=== PATIENT | male | born 1965 | race Caucasian/White ===

== ENCOUNTER 2023-03-01 08:23 | Observation (INO) | payer MEDICAID, SELFPAY ==
[2023-03-01] VITALS (9 sets, daily range): BP systolic 141–179; BP diastolic 74–94; PULSE 69–82; RESP 15–18; TEMP 36.6–36.8; O2SAT 98–100; BMI 23.3; BMI 22.8
--- NOTE | 2023-03-01 08:41 | RAD_ITS ---
STUDY: X-RAY CHEST REASON FOR EXAM: Male, 57 years old. Stroke symptoms TECHNIQUE: Single AP portable view of the chest. COMPARISON: None. FINDINGS: EKG electrodes are seen. Hyperinflation. Scattered calcified granulomas. No acute infiltrate is seen. There is no demonstrated pleural abnormality. Normal size heart. Normal mediastinum and evin. Normal visualized pulmonary arteries. Normal visualized aortic arch and descending thoracic aorta. There are degenerative changes of the visualized thoracic spine. Normal visualized ribs, clavicles, and shoulders. There is no demonstrated abnormality of the visualized soft tissue structures of the upper abdomen. RAD/Chest 1 View (Portable) IMPRESSION: Hyperinflation. No acute abnormality is seen. Electronically Signed: Fabio Lange MD at 9:27 EDT ,
--- NOTE | 2023-03-01 08:41 | CT_ITS ---
STUDY: CT BRAIN WITHOUT CONTRAST REASON FOR EXAM: Male, 57 years old. Left sided weakness/ataxia RADIATION DOSAGE (If Supplied By Facility): CTDIvol = ( 44.99 ) mGy, DLP = ( 812.98 ) mGycm TECHNIQUE: Transaxial CT imaging of the brain was performed without administration of intravenous contrast material. Individualized dose optimization techniques were used for this CT. COMPARISON: No relevant priors. FINDINGS: Normal soft tissue structures. Normal calvarium. Normal size ventricles and extra-axial spaces for the patient''s age. Normal white matter tracts of the cerebral hemispheres. Tiny lacunae in the right basal ganglion. Normal brainstem. Normal cerebellum. There is no intracranial hemorrhage. There are no findings of an acute ischemic infarction. Normal visualized paranasal sinuses. CT/Brain/Head without Contrast IMPRESSION: Tiny lacunae in the right basal ganglion. Electronically Signed: Fabio Lange MD at 9:26 EDT ,
[2023-03-01 09:03] LABS: Basophil# 0.08 X10^3/uL; Basophil% 0.9 % (0-1); Eosinophils% 9.2 % (0-5); Hematocrit 49.3 % (40-54); Hemoglobin 16.4 g/dL (13.0-16.5); Lymphocyte % 25.2 % (19-41); Mean Corp Hgb Conc 33.3 g/dL (32-36); Mean Corpuscular Hgb 27.8 pg (27.0-32.0); Mean Corpuscular Volume 83.6 fL (80-94); Mean Platelet Vol. 10.3 fl (6.2-12.0); Monocyte# 0.63 X10^3/uL; Monocyte% 7.2 % (0-10); NRBC Flagged by Analyzer 0 % (0-5); Neutrophil % 57.2 % (47-70); Platelet Count 348 K/mm3 (150-450); RBC Distribution Width CV 13.3 % (11.6-14.6); RBC Distribution Width SD 40.7 fl (35.1-43.9); White Blood Count 8.7 K/mm3 (4.4-11.0)
--- NOTE | 2023-03-01 09:08 | EDS_ITS ---
HPI History of Present Illness Chief Complaint: Neuro S/Sx Informant: patient and family Narrative Narrative: Patient is a 57-year-old male with history of TIAs and hypertension presenting with concern of stroke. Patient had developed some left-sided weakness and paresthesias on , February 23 (1 week ago) and had been evaluated at [facility]. They had recommended transfer to [facility] however patient thought this was just another TIA and left because he was concerned about bill associated with medical transport. Patient states he has had continued symptoms since however upon wakening this morning they are more severe. Family was at the bedside states that his gait has been off since but he was very unsteady this morning. He feels that he is a little bit weak in his left upper extremity but his left lower extremity is more weak and now he is stumbling. He also has paresthesias of his left leg. Patient notes he is been having some vision changes as been going on for months with the left eye being more blurry. No significant speech changes. They also has been more fatigued this week. No report of any head injuries. No other complaints or concerns at this time. [facility] Medical History Diabetes Former smoker Hypertension Kidney stones Sleep apnea TIA (transient ischemic attack) Home Medications amlodipine 10 mg tablet 10 mg PO DAILY BLOOD PRESSURE 03/01/23 [History Last Taken 03/01/23] aspirin 325 mg tablet 325 mg PO DAILY PAIN 03/01/23 [History Last Taken 03/01/23] cetirizine 10 mg tablet 10 mg PO DAILY PRN NASAL CONGESTION 03/01/23 [History Last Taken Unknown] empagliflozin 25 mg tablet (Jardiance) 25 mg PO DAILY BLOOD SUGARS 03/01/23 [History Last Taken Unknown] ibuprofen 800 mg tablet 800 mg PO TID PRN PAIN 03/01/23 [History Last Taken 03/01/23] insulin degludec 100 unit/mL (3 mL) subcutaneous pen (Tresiba FlexTouch U-100 insulin) 50 unit subcut DAILY DIABETES 03/01/23 [History Last Taken 03/01/23] lisinopril 20 mg tablet 40 mg PO DAILY BLOOD PRESSURE 03/01/23 [History Last Taken 03/01/23] psyllium husk 0.52 gram capsule (Fiber (psyllium husk)) 0.52 g PO DAILY CONSTIPATION 03/01/23 [History Last Taken 03/01/23] Allergy/AdvReac Type Severity Reaction Status Date / Time No Known Allergies Allergy Verified 03/01/23 11:51 Family History (Updated 03/01/23 @ 12:[address] Nando Gonzalez DO) Aunt CVA (cerebral vascular accident) Surgical History no surgical history Social History (Updated 03/01/23 @ 12:[address] Nando Gonzalez DO) Smoking Status: Former smoker alcohol intake: current alcohol intake frequency: holidays/special occasions only ROS ROS ED Constitutional Constitutional ED: Denies chills or fever(s) Eyes Eyes: Reports change in vision ENT ENT ED: Denies rhinorrhea or sore throat Cardiovascular Cardiovascular: Denies chest pain or palpitations Respiratory/Chest Respiratory/Chest: Denies cough Gastrointestinal Gastrointestinal: Denies abdominal pain, nausea or vomiting Musculoskeletal Musculoskeletal: Denies arthralgias or myalgias Integumentary Denies rash Neurologic Neurologic: Reports headache(s), paresthesias LLE and weakness Psychiatric Psychiatric: Denies anxiety EXAM Physical Exam Const Vital Signs: 03/01/23 08:24 03/01/23 11:24 Temperature 97.8 F 97.8 F Temperature Source Temporal Temporal Pulse Rate 74 69 Respiratory Rate 18 18 Blood Pressure 179/93 H 150/94 H Blood Pressure Mean 121 112 Pulse Ox 99 99 Oxygen Delivery Method Room Air Room Air Positive well nourished and well developed General Appearance ED: well developed and NAD HEENT Reports moist mucous membranes Eyes PERRL and EOMs intact bilaterally Neck supple and no JVD Chest Wall inspection of chest normal and palpation of chest normal Resp normal respiratory effort and clear to auscultation bilaterally Cardio no murmurs Rate: regular rate Rhythm: regular rhythm GI normal to inspection, nondistended, normoactive bowel sounds Back/Spine no CVA tenderness Extremity normal to inspection General Extremety ED: Negative for deformity General Extremity: Negative for deformity Neuro oriented x3 and CN's II-XII intact bilaterally Neuro Narrative: Subjective paresthesias of the left leg. Very subtle drift of the left upper and lower extremities. Patient has ataxia of the left extremities out of proportion to the weakness. See NIH below. Psych mental status grossly normal Skin no wounds NIHSS NIHSS Initial: 1a Level of Consciousness: 0 1b LOC Questions (Score 2 if aphasic/stupor): 0 1c LOC Commands (Only score 1st attempt): 0 2 Best Gaze (If aphasic, use reflexive mvmts.): 0 3 Visual: 0 4 Facial Palsy: 0 5 Motor Arm Right (UN = amputation/fusion): 0 5 Motor Arm Left: 1 6 Motor Leg Right: 0 6 Motor Leg Left: 1 7 Limb ataxia (Only + if out of proportion): 2 8 Sensory (Aphasia/stupor=0 or 1, coma=2): 0 9 Best Language: 0 10 Dysarthria (mute, coma=2, intubated=UN): 0 11 Extinction and Inattention (only scored if +): 0 Total Score: 4 MDM MDM MDM Narrative Medical decision making narrative: Patient's evaluated for progression of all left-sided deficits. He was evaluated and likely had the start of a stroke 6 days ago but at that time did not want to be transferred and decided to leave the hospital. On [facility], ER report as well as CTA of the head and neck are reviewed from outside hospital. 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 There is no significant stenosis. This is relayed to admitting physician at our hospital. It does seem that the patient's symptoms are about the same as they were last week but given the progression of symptoms and a CT that now shows lacunar infarct of the right basal ganglia patient is now agreeable with admission. He is hypertensive and hyperglycemic in the ER. He does have a history of both hypertension and diabetes. He does not have signs of hemorrhagic conversion. He is given aspirin in the emergency room. Patient is not a TNK candidate due to the timing of onset and the finding of acute stroke on his CT. stroke alert was not called. Lab Data Attestation: I reviewed the patient's lab results. Labs: Laboratory Results - last 24 hr 03/01/23 03/01/23 08:29 09:15 WBC 8.7 RBC 5.90 Hgb 16.4 Hct 49.3 MCV 83.6 MCH 27.8 MCHC 33.3 RDW Std Deviation 40.7 RDW Coeff of Tres 13.3 Plt Count 348 MPV 10.3 Immature Gran % (Auto) 0.300 Neut % (Auto) 57.2 Lymph % (Auto) 25.2 [place] % (Auto) 7.2 Eos % (Auto) 9.2 H Baso % (Auto) 0.9 Absolute Neuts (auto) 5.0 Absolute Lymphs (auto) 2.20 Nucleated RBC % 0 Sodium 133 L Potassium 3.9 Chloride 101 Carbon Dioxide 30.0 Anion Gap 2 L BUN 18 Creatinine 0.94 Estim Creat Clear Calc 84.89 Est GFR (MDRD) Af Amer 106 Est GFR (MDRD) Non-Af 88 BUN/Creatinine Ratio 19.0 Glucose 261 H Calcium 9.9 Total Bilirubin 0.40 AST 11 L ALT 32 Alkaline Phosphatase 87 Total Protein 8.3 H Albumin 4.0 Globulin 4.3 H Albumin/Globulin Ratio 0.9 Urine Color Yellow Urine Clarity Clear Urine pH 6.5 Ur Specific [place] 1.010 Urine Protein Negative Urine Glucose (UA) 250 H Urine Ketones Negative Urine Occult Blood Negative Urine Nitrite Negative Urine Bilirubin Negative Urine Urobilinogen Normal Ur Leukocyte Esterase Negative Urine RBC 0 SEEN Urine WBC 0 SEEN Ur Squamous Epith Cells 0 SEEN Urine Bacteria 0 SEEN Urine Mucus 0 SEEN Urine Opiates Screen NEGATIVE Urine Methadone Screen NEGATIVE Ur Barbiturates Screen NEGATIVE Ur Phencyclidine Scrn NEGATIVE Ur Amphetamines Screen NEGATIVE MDMA (Ecstasy) Screen NEGATIVE U Benzodiazepines Scrn NEGATIVE Urine Cocaine Screen NEGATIVE U Cannabinoids Screen NEGATIVE Ur Drug Screen Comment Ethyl Alcohol < 3.0 Radiography Chest X-Ray - ED: 1 View, Read by ED Physician, Read by Radiologist and No Acute Disease Diagnostic Testing: Clinical Impression(s) from Imaging Studies Brain CT 03/01/23 08:41 IMPRESSION: Tiny lacunae in the right basal ganglion. Electronically Signed: Fabio Lange MD at 9:26 EDT , Chest X-Ray 03/01/23 08:41 IMPRESSION: Hyperinflation. No acute abnormality is seen. Electronically Signed: Fabio Lange MD at 9:27 EDT , Discharge Plan Dx/Rx/DC Orders Clinical Impression: Basilar artery aneurysm, CVA (cerebral vascular accident) Disposition Disposition: Acute Care [facility] Discharge Date/Time: 03/01/23 11:40
[2023-03-01 09:10] LABS: Alcohol, Blood (Medical)-Serum < 3.0 mg/dL
[2023-03-01 09:14] LABS: ALB/GLOB Ratio 0.9 RATIO (0.9-2.4); AST(SGOT) 11 U/L (15-37); Alanine Aminotransfer ALT/SGPT 32 U/L (16-61); Alkaline Phosphatase 87 U/L (45-117); Anion Gap 2 (5-15); BUN 18 mg/dL (7-18); Calcium,Total 9.9 mg/dL (8.5-10.1); Chloride 101 mmol/L (98-107); Creatinine, Serum 0.94 mg/dL (0.70-1.30); EST Glomerular Filtration Rate 88 mL/min (>60); Est Glom Filt Rate - Afr Amer 106 mL/min (>60); Estimated Creatinine Clearance 84.89 ml/min; Globulin 4.3 g/dL (2.2-4.2); Glucose 261 mg/dL (74-106); Potassium 3.9 mmol/L (3.5-5.1); Protein, Total 8.3 g/dL (6.4-8.2); Sodium Level 133 mmol/L (136-145)
[2023-03-01 09:23] LABS: Bacteria 0 SEEN /hpf (None Seen); Mucous, Urine 0 SEEN /hpf (<or=2+); Red Blood Cells-Urine 0 SEEN /hpf (0-5); Squamous Epithelial Cells - UA 0 SEEN /hpf (0-5); White Blood Cells 0 SEEN /hpf (0-5)
[2023-03-01 09:24] LABS: Color, Urine Yellow (Yellow); Glucose, Dipstick 250 mg/dl (Normal); Ketone-Dipstick Negative (Negative); Leukocyte Esterase-Dipstick Negative /ul (Negative); Nitrite-Dipstick Negative (Negative); Occult Blood-Urine Negative /ul (Negative); Protein-Dipstick Negative (Negative); Urine Bilirubin Dipstick Negative (Negative); Urine Clarity Clear (Clear); Urine Urobilinogen Normal (Normal); Urine pH 6.5 (5.0 - 8.0)
[2023-03-01 09:37] LABS: Amphetamine Urine VISTA NEGATIVE (<1000 ng/mL); Barbiturate Urine VISTA NEGATIVE (< 200 ng/mL); Benzodiazepine Urine VISTA NEGATIVE (< 200 ng/mL); Cocaine Urine VISTA NEGATIVE (< 300 ng/mL); Ecstacy Urine VISTA NEGATIVE (< 500 ng/mL); Methadone Urine VISTA NEGATIVE (< 300 ng/mL); PCP Urine VISTA NEGATIVE (< 25 ng/mL); THC Urine VISTA NEGATIVE (< 50 ng/mL); Vista UDS pH Range 6
--- NOTE | 2023-03-01 12:05 | MRI_ITS ---
We are attempting to reach an attending provider to discuss findings. An addendum with communication details will be sent when the communication is complete. STUDY: MRI BRAIN WITHOUT CONTRAST REASON FOR EXAM: Male, 57 years old. CVA TECHNIQUE: Standardized multiplanar fat and water weighted pulse sequences were obtained. Sagittal T1, axial T2, FLAIR and diffusion-weighted images with ADC map. COMPARISON: CT brain March 01, 2023. FINDINGS: Normal size of the ventricles and extra-axial spaces for the patient''s age. Thin linear area of restricted diffusion in the right side of the armando extending through the area of the red nucleus. There is associated with increased T2 and FLAIR signal. Noncompliant scattered areas of increased T2 and FLAIR signal in the periventricular white matter most commonly representing chronic small vessel ischemic changes. Normal T2* images of the brain without demonstrated susceptibility artifact. There is no demonstrated hemosiderin stain. There is no extra-axial fluid accumulation. Normal flow voids within the major intracranial circulation suggesting patency by spin echo criteria. Specifically, basilar artery is normal in appearance. Normal sella turcica, pituitary gland, infundibular stalk, optic chiasm and hypothalamus. Normal tectal plate and pineal gland. Normal cerebellum. Normal basal cisterns. Normal bilateral temporal bones. Normal bilateral internal auditory canals. Normal visualized paranasal sinuses. Normal calvarium and skull base. Visualized upper cervical spine notable for posterior disc herniation at C2-3. MRI/Brain without Contrast IMPRESSION: Restricted diffusion indicating acute ischemia right armando; posterior circulation infarct. Electronically Signed: Basil Wong DO at 21:02 EDT ,
--- NOTE | 2023-03-01 12:05 | ECHOCS_ITS ---
Reason For Study: TIA/CVA Procedure This was a 2D Doppler, Color Flow transthoracic echocardiogram. The study was technically difficult. Exam performed portable in patient room. Left Ventricle Normal LV size. The estimated ejection fraction is 70 %. Unable to assess diastolic dysfunction. No regional wall motion abnormalities noted. Right Ventricle Normal RV size. Normal systolic function. Atria Normal left atrium. Normal right atrium. No doppler evidence for ASD. Bubble contrast study negative for right to left interatrial shunt. Mitral Valve There is moderate mitral annular calcification. There is no mitral valve stenosis. No mitral valve insufficiency. Tricuspid Valve There is no tricuspid stenosis. Trivial tricuspid valve insufficiency. Pulmonary artery systolic pressure is 25 mmHg. Aortic Valve Trisinus/trileaflet aortic valve. Moderate diffuse aortic valve thickening. Mild aortic stenosis. No aortic valve insufficiency. Pulmonic Valve There is no pulmonic valvular stenosis. No pulmonic valve insufficiency. Great Vessels Normal aortic root. Pericardium/Pleural No pericardial effusion. Medication Performed a rapid injection of agitated mix of 9 cc saline and 1cc air to assess for atrial septal defect. Diluted definity 1.5ml given slow IV push to enhance endocardial definition. MMode/2D Measurements & Calculations LVIDd: 3.7 cm IVSd: 1.2 cm LVOT diam: 2.0 cm LVIDs: 2.2 cm LVPWd: 1.2 cm RVDd: 3.3 cm FS: 40.7 % LVOT area: 3.3 cm2 Ao root diam: 3.1 cm LAV(MOD-bp): 31.7 ml LVAd ap4: 29.1 cm2 LAV(MOD-bp) Indexed: 17.5 ml/m2 LVLd ap4: 7.9 cm LAV(MOD-sp2): 24.6 ml EDV(MOD-sp4): 89.1 ml LAV(MOD-sp4): 38.6 ml EDV(sp4-el): 90.8 ml LVAs ap4: 12.4 cm2 LVLs ap4: 6.1 cm ESV(MOD-sp4): 20.6 ml ESV(sp4-el): 21.6 ml EF(MOD-sp4): 76.8 % EF(sp4-el): 76.2 % LVAd ap2: 24.9 cm2 SV(MOD-sp4): 68.5 ml SV(MOD-sp2): 49.1 ml LVLd ap2: 7.6 cm EDV(MOD-sp2): 66.9 ml EDV(sp2-el): 68.8 ml LVAs ap2: 11.9 cm2 LVLs ap2: 6.6 cm ESV(MOD-sp2): 17.8 ml ESV(sp2-el): 18.0 ml EF(MOD-sp2): 73.4 % SV(sp4-el): 69.2 ml LA dimension(2D): 3.8 cm LA A4 area: 15.0 cm2 RA A4 area: 14.9 cm2 TAPSE: 2.0 cm Time Measurements MV dec time: 0.32 sec Doppler Measurements & Calculations MV E max omar: 65.2 cm/sec Lat Peak E' Omar: 6.7 cm/sec Med Peak E' Omar: 6.2 cm/sec MV A max omar: 81.5 cm/sec E/E' lat: 9.7 E/E' med: 10.6 MV E/A: 0.80 Ao V2 max: 158.4 cm/sec LV V1 max: 124.1 cm/sec MV dec slope: 205.5 cm/sec2 Ao max P.0 mmHg LV V1 max P.2 mmHg ELVIE(V,D): 2.6 cm2 PA V2 max: 112.8 cm/sec TR max omar: 254.8 cm/sec TR max P.0 mmHg ECHO/Echo Complete W/ Contrast Interpretation Summary The estimated ejection fraction is 70 %. Unable to assess diastolic dysfunction. Mild aortic stenosis. Ordering Physician: Nando Gonzalez Performed By: Aurelia Appiah RDCS
--- NOTE | 2023-03-01 12:12 | PCM.HP.STD ---
HPI - General General Date of Admission: 03/01/23 Date of Service: 03/01/23 Chief Complaint: left sided weakness. HPI Narrative WENDY SARAH, is a 57 M who presents with left sided weakness and slurred speech. . Symptoms began last week on the . He was seen at an outside ED he was worked up for a stroke. Plan was transfer to [facility], however, the patient had concerns about the cost of transfer and went home instead. His symptoms at improved. However, last night his left sided weakness got worse leading him to present to the [facility] ED today. CT here showed a tiny lacune in the right BG. [facility] Medical History Diabetes Former smoker Hypertension Kidney stones Sleep apnea TIA (transient ischemic attack) Home Medications amlodipine 10 mg tablet 10 mg PO DAILY BLOOD PRESSURE 03/01/23 [History Last Taken 03/01/23] aspirin 325 mg tablet 325 mg PO DAILY PAIN 03/01/23 [History Last Taken 03/01/23] cetirizine 10 mg tablet 10 mg PO DAILY PRN NASAL CONGESTION 03/01/23 [History Last Taken Unknown] empagliflozin 25 mg tablet (Jardiance) 25 mg PO DAILY BLOOD SUGARS 03/01/23 [History Last Taken Unknown] ibuprofen 800 mg tablet 800 mg PO TID PRN PAIN 03/01/23 [History Last Taken 03/01/23] insulin degludec 100 unit/mL (3 mL) subcutaneous pen (Tresiba FlexTouch U-100 insulin) 50 unit subcut DAILY DIABETES 03/01/23 [History Last Taken 03/01/23] lisinopril 20 mg tablet 40 mg PO DAILY BLOOD PRESSURE 03/01/23 [History Last Taken 03/01/23] psyllium husk 0.52 gram capsule (Fiber (psyllium husk)) 0.52 g PO DAILY CONSTIPATION 03/01/23 [History Last Taken 03/01/23] Allergy/AdvReac Type Severity Reaction Status Date / Time No Known Allergies Allergy Verified 03/01/23 11:51 Family History (Updated 03/01/23 @ 12:[address] Nando Gonzalez DO) Aunt CVA (cerebral vascular accident) Surgical History no surgical history Social History (Updated 03/01/23 @ 12:[address] Nando Jopperi, DO) Smoking Status: Former smoker alcohol intake: current alcohol intake frequency: holidays/special occasions only ROS ROS Narrative States that he has chronic light sensitivity. His vision recently has improved. Otherwise all review of systems are negative except as mentioned above in HPI and ROS. Vital Signs Vital Signs Vital Signs: 03/01/23 08:24 03/01/23 11:24 Temperature 36.6 C 36.6 C Temperature Source Temporal Temporal Pulse Rate 74 69 Respiratory Rate 18 18 Blood Pressure 179/93 H 150/94 H Blood Pressure Mean 121 112 Pulse Ox 99 99 Oxygen Delivery Method Room Air Room Air Weight Weight: 68.2 kg Body Mass Index (BMI) 22.8 Physical Exam Const alert and no apparent distress HEENT normocephalic and head/scalp atraumatic Eyes PERRL and EOMs intact bilaterally Eyes Narrative: bilateral nystagmus. Resp normal respiratory effort, no retractions, no use of accessory muscles and clear to auscultation bilaterally Cardio regular rate, regular rhythm, S1 normal heart sound and S2 normal heart sound GI normal to inspection, nondistended, normoactive bowel sounds, soft to palpation, non-tender and non-distended Extremity normal to inspection and full ROM Neuro oriented x3, CN's II-XII intact bilaterally, moves all extremities and no focal motor deficits Neuro Narrative: abnormal finger to nose and heel to saleh on left. Sensorium / Orientation: awake and alert Motor Exam: strength 5/5 throughout Psych affect normal Results Medical Records Data Attestation: I reviewed the patient's medical records Medical records narrative: Through [facility]: CT brain on 02/23: negative CTA brain and neckon 02/24: basilar tip aneurysm of 4mm, proximal basilar artery 3.1mm. Lab / Micro Data Attestation: I reviewed the patient's lab results. 03/01/23 08:29 03/01/23 08:29 Labs: Laboratory Results - last 24 hr 03/01/23 08:29: WBC 8.7, RBC 5.90, Hgb 16.4, Hct 49.3, MCV 83.6, MCH 27.8, MCHC 33.3, RDW Std Deviation 40.7, RDW Coeff of Tres 13.3, Plt Count 348, MPV 10.3, Immature Gran % (Auto) 0.300, Neut % (Auto) 57.2, Lymph % (Auto) 25.2, [place] % (Auto) 7.2, Eos % (Auto) 9.2 H, Baso % (Auto) 0.9, Absolute Neuts (auto) 5.0, Absolute Lymphs (auto) 2.20, Nucleated RBC % 0, Sodium 133 L, Potassium 3.9, Chloride 101, Carbon Dioxide 30.0, Anion Gap 2 L, BUN 18, Creatinine 0.94, Estim Creat Clear Calc 84.89, Est GFR (MDRD) Af Amer 106, Est GFR (MDRD) Non-Af 88, BUN/Creatinine Ratio 19.0, Glucose 261 H, Calcium 9.9, Total Bilirubin 0.40, AST 11 L, ALT 32, Alkaline Phosphatase 87, Total Protein 8.3 H, Albumin 4.0, Globulin 4.3 H, Albumin/Globulin Ratio 0.9, Ethyl Alcohol < 3.0 03/01/23 09:15: Urine Color Yellow, Urine Clarity Clear, Urine pH 6.5, Ur Specific [place] 1.010, Urine Protein Negative, Urine Glucose (UA) 250 H, Urine Ketones Negative, Urine Occult Blood Negative, Urine Nitrite Negative, Urine Bilirubin Negative, Urine Urobilinogen Normal, Ur Leukocyte Esterase Negative, Urine RBC 0 SEEN, Urine WBC 0 SEEN, Ur Squamous Epith Cells 0 SEEN, Urine Bacteria 0 SEEN, Urine Mucus 0 SEEN, Urine Opiates Screen NEGATIVE, Urine Methadone Screen NEGATIVE, Ur Barbiturates Screen NEGATIVE, Ur Phencyclidine Scrn NEGATIVE, Ur Amphetamines Screen NEGATIVE, MDMA (Ecstasy) Screen NEGATIVE, U Benzodiazepines Scrn NEGATIVE, Urine Cocaine Screen NEGATIVE, U Cannabinoids Screen NEGATIVE, Ur Drug Screen Comment Radiology Impression Brain CT 03/01/23 08:41 IMPRESSION: Tiny lacunae in the right basal ganglion. Electronically Signed: Fabio Lange MD at 9:26 EDT , Chest X-Ray 03/01/23 08:41 IMPRESSION: Hyperinflation. No acute abnormality is seen. Electronically Signed: Fabio Lange MD at 9:27 EDT , Assessment & Plan Assessment/Plan (1) CVA (cerebral vascular accident): QUALIFIERS: CVA mechanism: unspecified Qualified Code(s): I63.9 - Cerebral infarction, unspecified PLAN: Subacute presentation, though pt presents with worsening symptoms CVA work up with MRI brain, MRA head and neck, Echo, FLP PT OT ST (2) Basilar artery aneurysm: PLAN: likely asymptomatic. at outside CTA, measured at 4mm. follow up with neurosurgery as outpt. PLAN: Plan Chronic conditions: HTN: continue amlodipine and lisinopril (onset of CVA was 02/23 and therefore far out of the window of permissive HTN) DM2: continue basal insulin and SSI VTE prophylaxis: Not indicated given obs status Code Status: Full code. DW the patient. Charges/Coding Visit Charges Inpatient E&M: 27774 Init Hosp L3
[2023-03-01 12:36] LABS: Troponin-I HS 11 pg/mL (3.0-78.0)
[2023-03-01] MEDS: Insulin Lispro 100 UNIT/ML INSULN.PEN SC ×2 (16:47→22:42)
[2023-03-01 18:15] LABS: Bedside Glucose 254 mg/dL (74-106)
[2023-03-01 22:24] LABS: Bedside Glucose 275 mg/dL (74-106)
[2023-03-02 00:59] VITALS: BMI 22.8
[2023-03-02 02:00] VITALS: BP 147/85; PULSE 68; RESP 18; TEMP 36.4; O2SAT 100
[2023-03-02] MEDS: Ibuprofen 400 MG Tablet 800 MG PO (02:00)
[2023-03-02 06:00] VITALS: BP 145/84; PULSE 70; RESP 18; TEMP 36.6; O2SAT 100
[2023-03-02 06:31] LABS: Cholesterol 241 mg/dL (200); High Density Lipoprotein 40 mg/dL; Triglycerides 157 mg/dL; Very Low Density Lipoprotein 31 mg/dL (5-40)
[2023-03-02] MEDS: Insulin Lispro 100 UNIT/ML INSULN.PEN SC ×3 (06:59→16:46)
[2023-03-02 07:19] LABS: Bedside Glucose 183 mg/dL (74-106)
[2023-03-02 09:00] VITALS: O2SAT 99
--- NOTE | 2023-03-02 09:16 | CASEMGMT ---
SW completed a PHQ 9 with patient as he had a Stroke. Patient scored a 0 which indicates no depression. Patient denied need for counseling resources. Ashtyn ISLAS
--- NOTE | 2023-03-02 09:22 | PN.HOSP_ITS ---
Reason for Visit Reason for Visit: Diagnoses Cerebral infarction, unspecified (03/01/23) Aneurysm of other precerebral arteries (03/01/23) Subjective Subjective Feeling better. Objective Data Objective Data Vital Signs: Vital Signs Temp Pulse Resp BP Pulse Ox O2 Del Method 36.6 C 70 18 145/84 H 99 Room Air 03/02/23 06:00 03/02/23 06:00 03/02/23 06:00 03/02/23 06:00 03/02/23 09:00 03/02/23 09:00 Oxygen Delivery Method Room Air Weight: 68.2 kg Body Mass Index (BMI) 22.8 Intake & Output: Intake and Output for Last 24 Hours 02/28/23 03/01/23 03/02/23 23:59 23:59 23:59 Intake Total 340 / 340 Balance 340 / 340 Lab / Micro Data 03/01/23 08:29 03/01/23 08:29 Labs: Laboratory Results - last 24 hr 03/01/23 09:15: Urine Color Yellow, Urine Clarity Clear, Urine pH 6.5, Ur Specific [place] 1.010, Urine Protein Negative, Urine Glucose (UA) 250 H, Urine Ketones Negative, Urine Occult Blood Negative, Urine Nitrite Negative, Urine Bilirubin Negative, Urine Urobilinogen Normal, Ur Leukocyte Esterase Negative, Urine RBC 0 SEEN, Urine WBC 0 SEEN, Ur Squamous Epith Cells 0 SEEN, Urine Bacteria 0 SEEN, Urine Mucus 0 SEEN, Urine Opiates Screen NEGATIVE, Urine Methadone Screen NEGATIVE, Ur Barbiturates Screen NEGATIVE, Ur Phencyclidine Scrn NEGATIVE, Ur Amphetamines Screen NEGATIVE, MDMA (Ecstasy) Screen NEGATIVE, U Benzodiazepines Scrn NEGATIVE, Urine Cocaine Screen NEGATIVE, U Cannabinoids Screen NEGATIVE, Ur Drug Screen Comment 03/01/23 12:10: Troponin I High Sens 11 03/01/23 16:43: POC Glucose 254 H 03/01/23 22:02: POC Glucose 275 H 03/02/23 05:34: Triglycerides 157, Cholesterol 241 H, LDL Cholesterol 170 H, VLDL Cholesterol 31, HDL Cholesterol 40 03/02/23 06:58: POC Glucose 183 H Radiography Diagnostic Testing: Radiology Impression Brain CT 03/01/23 08:41 IMPRESSION: Tiny lacunae in the right basal ganglion. Electronically Signed: Fabio Lange MD at 9:26 EDT , Chest X-Ray 03/01/23 08:41 IMPRESSION: Hyperinflation. No acute abnormality is seen. Electronically Signed: Fabio Lange MD at 9:27 EDT , Brain MRI 03/01/23 12:05 IMPRESSION: Restricted diffusion indicating acute ischemia right armando; posterior circulation infarct. Electronically Signed: Basil Wong DO at 21:02 EDT , ADDENDUM: 03/01/232123 IMPRESSION: Restricted diffusion indicating acute ischemia right armando; posterior circulation infarct. N.B. : The above Results were Read Back by Basil Wong DO to Kassandra Galeano RN, and understanding confirmed on 03/01/2023 21:17:28 (ET). Electronically Signed: Basil Wong DO at 21:02 EDT , Physical Exam Const alert and no apparent distress HEENT head/scalp atraumatic Extremity normal to inspection Neuro oriented x3 and moves all extremities Neuro Narrative: abnormal [id number], [id number] on left. Motor Exam: strength 5/5 throughout Assessment & Plan Assessment/Plan (1) CVA (cerebral vascular accident): QUALIFIERS: CVA mechanism: unspecified Qualified Code(s): I63.9 - Cerebral infarction, unspecified PLAN: Subacute presentation, though pt presents with worsening symptoms CVA work up with MRI brain, Echo, FLP PT OT ST MRI brain: right pontinine CVA Will not perform MRAs as pt barely tolerated the MRI and has already had CTAs last week Seen by neurology, recommended change ASA to clopidogrel (2) Basilar artery aneurysm: PLAN: asymptomatic. at outside CTA, measured at 4mm. follow up with neurosurgery as outpt. PLAN: Plan Chronic conditions: * HTN: continue amlodipine and lisinopril (onset of CVA was 02/23 and therefore far out of the window of permissive HTN) * DM2: continue basal insulin and SSI VTE prophylaxis: Not indicated given obs status Code Status: Full code. DW the patient.
[2023-03-02 10:00] VITALS: BP 124/108; PULSE 79; RESP 16; TEMP 36.6; O2SAT 99
[2023-03-02] MEDS: Aspirin 325 MG Tablet PO (10:19)
[2023-03-02] MEDS: Clopidogrel Bisulfate 75 MG Tablet PO (10:19)
[2023-03-02] MEDS: amLODIPine 10 MG Tablet PO (10:20)
[2023-03-02] MEDS: Lisinopril 40 MG Tablet PO (10:20)
--- NOTE | 2023-03-02 10:45 | CASEMGMT ---
SW completed Healthcare Power of Manager Technical and Healthcare Living Will documents with patient. Copies were made and given to patient along with originals. SW also placed a copy of each in patient's chart. Ashtyn ISLAS
[2023-03-02 12:38] LABS: Bedside Glucose 209 mg/dL (74-106)
--- NOTE | 2023-03-02 12:45 | CASEMGMT ---
Addendum entered by Tammi Tang 03/02/23 15:26: 1530: PT/OT evals completed. OP therapy and also a shower chair was recommended. Dr Gonzalez made aware. Scripts received and provided to pt and . They were made aware [employer] does not carry shower chairs and they state they will look into getting a shower chair from another local DME co and were provided w/a list of local co's. Questions answered re: OP locations for OP therapy as well. They decline wanting RN DAMIR to fax script to an OP location, stating they decide wish to decide later where pt would like to go to. Original Note: RN DAMIR NOTE: Pt being discharged home. RN CM to room. Pt sitting up in chair in room. @ bedside. Pt and state they are currently staying w/their vice president of software engineering and his until they find their own place. Only one small threshold step to enter. Pt is indep @ baseline. manages his medications. ST eval reviewed and additional ST recommended. ROJAS REICH spoke w/[facility], who states OP ST would be beneficial. Script received for same and provided to pt and his . They are aware they can take to any OP location of choice. Questions answered. Script also received for FWW from Dr Gonzalez. Discussed FWW w/pt and he states he thinks it would be a good idea to get one. He states he has not been using one in his room while @ [facility], but he has had some unsteadiness and is just taking it slow. Discussed DME companies and they prefer [employer]. Referral for FWW sent via [facility]. ROJAS REICH [place] [facility] [place] [facility] supply. FWW taken to pt's room and given to pt at this time. PT/OT evals pending. Therapy @ bedside talking w/pt now. Pt and deny having further d/c planning needs at this time. Aleksandar CHAVEZ RN, CM
--- NOTE | 2023-03-02 12:53 | CHAPLAIN ---
Type of Pastoral Visit _x__ Initial Visit ___ Follow-up Visit ___ On-call Visit ___ General Patient Visit ___ Spiritual Assessment ___ Family Conference ___ Bereavement ___ Rapid Response ___ Code Blue ___ Other (describe below) Pastoral Care Referral From _x__ Patient ___ Family ___ Nurse ___ Physician ___ Truck Hop ___ Sheet Combining Operator ___ Other (describe below) Sacrament/Intervention _x__ Active listening ___ Anointing ___ Yazidism ___ Bereavement ___ Communion ___ Mary exploration ___ ___ Life review _x__ Prayer ___ Reconciliation ___ Sacrament of Sick ___ Supportive presence ___ Wedding ___ Other (describe below) Pastoral Comments patient reports feeling much better now and yet still having some testing done; SO is in the room with patient for support; pt states that he had a registered representative pray for him already but that he would accept more prayer; otherwise pt states he has no concerns
[2023-03-02 14:00] VITALS: BP 137/80; PULSE 84; RESP 16; TEMP 36.4; O2SAT 98
--- NOTE | 2023-03-02 15:13 | PCM.DC.SUM ---
Providers Date of Admission: 03/01/23 Primary Care Physician: Dr. Grace Miller MD Reason For Visit: CVA Diagnosis Discharge Diagnosis (1) CVA (cerebral vascular accident): Status: Acute Code(s): I63.9 - Cerebral infarction, unspecified Qualifiers: CVA mechanism: unspecified Qualified Code(s): I63.9 - Cerebral infarction, unspecified Plan: Subacute presentation, though pt presents with worsening symptoms CVA work up with MRI brain, Echo, FLP PT OT ST MRI brain: right pontinine CVA Will not perform MRAs as pt barely tolerated the MRI and has already had CTAs last week Seen by neurology, recommended change ASA to clopidogrel (2) Basilar artery aneurysm: Status: Acute Code(s): I72.5 - Aneurysm of other precerebral arteries Plan: asymptomatic. at outside CTA, measured at 4mm. follow up with neurosurgery as outpt. Plan Chronic conditions: HTN: continue amlodipine and lisinopril (onset of CVA was 02/23 and therefore far out of the window of permissive HTN) DM2: continue basal insulin and SSI VTE prophylaxis: Not indicated given obs status Code Status: Full code. DW the patient. Medications at Discharge Home Medications amlodipine 10 mg tablet 10 mg PO DAILY BLOOD PRESSURE 03/01/23 cetirizine 10 mg tablet 10 mg PO DAILY PRN NASAL CONGESTION 03/01/23 empagliflozin 25 mg tablet (Jardiance) 25 mg PO DAILY BLOOD SUGARS 03/01/23 insulin degludec 100 unit/mL (3 mL) subcutaneous pen (Tresiba FlexTouch U-100 insulin) 50 unit subcut DAILY DIABETES 03/01/23 lisinopril 20 mg tablet 40 mg PO DAILY BLOOD PRESSURE 03/01/23 psyllium husk 0.52 gram capsule (Fiber (psyllium husk)) 0.52 g PO DAILY CONSTIPATION 03/01/23 acetaminophen 500 mg capsule 1,000 mg (2 x 500 mg) PO Q8H PRN PRN fever or pain #20 caps 03/02/23 aspirin 81 mg capsule 81 mg PO DAILY #21 caps 03/02/23 atorvastatin 80 mg tablet 80 mg PO QHS #30 tabs 03/02/23 clopidogrel 75 mg tablet 75 mg PO DAILY #30 tabs 03/02/23 Hospital Course Procedures 2-D Echocardiogram Summary of Care Provided Minutes Spent on Discharge: 35 Hospital Course: Patient presents with delayed onset of left-sided weakness. Symptoms began last week and was seen at outside emergency room and was found to have a stroke as well as cerebral aneurysms. Patient was advised to go to the hospital but would require transfer. Because of transfer, patient was concerned about cost and elected to go home instead. Patient had noted improvement but on the day of admission, noted that his weakness on his left side was worse and presented to the emergency room. MRI showed an acute ischemic right pontine stroke. CT angiogram of the brain and neck on February 24 showed basilar tip aneurysm of 4 mm and proximal basilar artery aneurysm of 3.1 mm. We tempted to do an MRA here but patient was unable to tolerate MRI so that was canceled. No utility in checking the MRI if patient cannot tolerate given he is already had a recent CTA. Patient advised to follow-up with neurology as well as neurosurgery. Patient will continue with aspirin and Plavix for 3 weeks and then continue with Plavix. Patient also be on high intensity statin. Weight / BMI Weight Weight: 68.2 kg Body Mass Index (BMI) 22.8 ABG / Lab / Microbiology Data 03/01/23 08:29 03/01/23 08:29 Laboratory: Laboratory Results - last 24 hr 03/01/23 16:43: POC Glucose 254 H 03/01/23 22:02: POC Glucose 275 H 03/02/23 05:34: Triglycerides 157, Cholesterol 241 H, LDL Cholesterol 170 H, VLDL Cholesterol 31, HDL Cholesterol 40 03/02/23 06:58: POC Glucose 183 H 03/02/23 12:19: POC Glucose 209 H Radiography Diagnostic Testing: Radiology Impression Brain MRI 03/01/23 12:05 IMPRESSION: Restricted diffusion indicating acute ischemia right armando; posterior circulation infarct. Electronically Signed: Basil Wong DO at 21:02 EDT , ADDENDUM: 03/01/232123 IMPRESSION: Restricted diffusion indicating acute ischemia right armando; posterior circulation infarct. N.B. : The above Results were Read Back by Basil Wong DO to Kassandra Galeano RN, and understanding confirmed on 03/01/2023 21:17:28 (ET). Electronically Signed: Basil Wong DO at 21:02 EDT , Echocardiogram 03/01/23 12:05 Interpretation Summary The estimated ejection fraction is 70 %. Unable to assess diastolic dysfunction. Mild aortic stenosis. Ordering Physician: Nando Gonzalez Performed By: Aurelia Appiah RDCS D/C Instructions Discharge Diet: Low fat / Low cholesterol Call your doctor if you observe: - (increased weakness. ) Meaningful Use Info Meaningful Use Diagnoses (Choose all that apply): Ischemic CVA CVA Therapy Assessed for PT,OT and/or ST?: Yes Ischemic Stroke Antithrombotic order at d/c?: Yes Dx of Atrial fib/flutter?: No Anticoagulant at discharge?: No Reason anticoagulant not ordered: Treatment not Indicated Statins at discharge?: Yes Primary Dx Acute Ischemic CVA?: Yes IV thrombolytic ordered during stay?: No Reason IV thrombolytic not ordered: Medical Contraindication (delayed presentation) Discharge Plan Admission Admit Date/Time: 03/01/23 11:48 Primary Reason for Your Visit: Stroke Attending Provider: Nando Gonzalez Primary Care Provider: Grace Miller Instructions Additional Instructions / Restrictions: You have had a stroke. You will be on aspirin and clopidogrel (aka, Plavix) for 3 weeks, then stop the aspirin. You will also be on atorvastatin (aka, Lipitor). Follow up with neurology in the next 1-2 months. Please stop ibuprofen. You will be at greater risk for bleeding if you take ibuprofen. You may take high-dose acetaminophen (aka Tylenol) for pain. You also have cerebral aneurysms. These are not causing a problem for you but you will need to follow up with neurosurgery for surveillence. Your primary care physicain or the neurologist can help with this referral. Discharge Orders/Prescriptions Prescriptions: New clopidogrel 75 mg Tablet 75 mg PO DAILY Qty: 30 1RF atorvastatin 80 mg tablet 80 mg PO QHS Qty: 30 1RF acetaminophen 500 mg capsule 1,000 mg PO Q8H PRN PRN (Reason: fever or pain) Qty: 20 0RF aspirin 81 mg capsule 81 mg PO DAILY Qty: 21 0RF Rx Instructions: stop after 3 weeks Continued Jardiance 25 mg tablet 25 mg PO DAILY Patient Comments: PT/PTS FAMILY STATES THAT THE PT HAS BEEN OUT OF THIS MEDICATION FOR A LITTLE WHILE psyllium husk [Fiber (psyllium husk)] 0.52 gram capsule 0.52 g PO DAILY cetirizine 10 mg tablet 10 mg PO DAILY PRN (Reason: NASAL CONGESTION ) amlodipine 10 mg tablet 10 mg PO DAILY lisinopril 20 mg tablet 40 mg PO DAILY insulin degludec [Tresiba FlexTouch U-100] 100 unit/mL (3 mL) insulin pen 50 unit subcut DAILY Discontinued ibuprofen 800 mg tablet 800 mg PO TID PRN (Reason: PAIN ) aspirin 325 mg tablet 325 mg PO DAILY Patient Comments: PT STATES TAKES ONE TABLET BY MOUTH ONCE DAILY Referrals / Follow Up: [facility] [Provider Group] - Within 1 Month Grace Miller MD [Primary Care Provider] - Within 2 Weeks NOT,DEFINED [Non-Staff] - Disposition Disposition (needs filled in before D/C Order can be placed): Home, Self Care Charges/Coding Visit Charges Inpatient E&M: 67418 Disch Hosp >30min
--- NOTE | 2023-03-02 16:00 | PHA.DC.MC.R ---
Pharmacy [facility] has performed discharge medication reconciliation and counseling for this patient. The patient was counseled on the following discharge medications and changes in medications for homegoing were reviewed. 1. TYLENOL 2. ASPIRIN 3. PLAVIX 4. LIPITOR Also counselled patient at this time importance of stopping ibuprofen and to utilize Tylenol for Pain The Reason for Use, instructions for use, and potential side effects were reviewed for all new medications. The patient's questions regarding all of their medications were answered. The patient was able to verbally demonstrate an understanding of their discharge medications. The patient's discharge medication list was reviewed for discrepancies and discrepancies were resolved. Patient counselled by Piedad Paige, Jenna Candidate Medications at Discharge Home Medications amlodipine 10 mg tablet 10 mg PO DAILY BLOOD PRESSURE 03/01/23 cetirizine 10 mg tablet 10 mg PO DAILY PRN NASAL CONGESTION 03/01/23 empagliflozin 25 mg tablet (Jardiance) 25 mg PO DAILY BLOOD SUGARS 03/01/23 insulin degludec 100 unit/mL (3 mL) subcutaneous pen (Tresiba FlexTouch U-100 insulin) 50 unit subcut DAILY DIABETES 03/01/23 lisinopril 20 mg tablet 40 mg PO DAILY BLOOD PRESSURE 03/01/23 psyllium husk 0.52 gram capsule (Fiber (psyllium husk)) 0.52 g PO DAILY CONSTIPATION 03/01/23 acetaminophen 500 mg capsule 1,000 mg (2 x 500 mg) PO Q8H PRN PRN fever or pain #20 caps 03/02/23 aspirin 81 mg capsule 81 mg PO DAILY #21 caps 03/02/23 atorvastatin 80 mg tablet 80 mg PO QHS #30 tabs 03/02/23 clopidogrel 75 mg tablet 75 mg PO DAILY #30 tabs 03/02/23
[2023-03-02 16:35] VITALS: BMI 22.8
[2023-03-02 17:06] LABS: Bedside Glucose 276 mg/dL (74-106)
[2023-03-03 06:11] LABS: Bedside Glucose 216 mg/dL (74-106)
== END 2023-03-02 15:26 | disposition home or self-care (01) ==
LOC: ED 09:35 → PCU 12:43
PROVIDERS: Emergency Provider Emergency Medicine; PCP Student in an Organized Health Care Education/Training Program
DX: I63.9 Cerebral infarction, unspecified (principal); E11.9 Type 2 diabetes mellitus without complications; Z79.4 Long term (current) use of insulin; I10 Essential (primary) hypertension; M62.81 Muscle weakness (generalized); R47.81 Slurred speech; H53.9 Unspecified visual disturbance; Z87.891 Personal history of nicotine dependence; Z79.899 Other long term (current) drug therapy; Z79.82 Long term (current) use of aspirin; R29.704 NIHSS score 4
CPT/HCPCS: 36415; 70450; 70551; 71045; 80053; 80061; 80307; 81001; 82077; 82962; 84484; 85025; 92507; 92523; 93306; 94762; 97162; 97166; 97802; 99221; 99284; Q9957; C8929; G0378